=== PATIENT | female | born 1965 | race Caucasian/White ===

== ENCOUNTER → 2018-07-01 | Outpatient (CLI) | payer OTHER | LOC: RAD 02:02 | DX: Z12.31 Encounter for screening mammogram for malignant neoplasm of breast (principal) ==

== ENCOUNTER → 2018-08-28 | Outpatient (CLI) | payer OTHER ==
--- NOTE | 2018-08-29 16:08 | PATH ---
[facility] [place] [address] PATHOLOGY RPT PROCEDURE Name: LOVE SLOAN Room #: REG Jero Albert.#: [id number] Admission: 08/28/18 Date of : 63 Discharge: Report #: [id number] Path Case #: [id number] [facility] Accession Number: [id number] . 01 Material submitted: . RIGHT BREAST NODULE-CENTRAL . 01 Clinical history: . Right breast nodule . 02 Diagnosis: Breast, right breast central nodule, needle core biopsy: - Cystic papillary apocrine metaplasia measuring 7 mm in greatest dimension. - Background breast tissue showing proliferative fibrocystic changes including duct ectasia, usual ductal hyperplasia and columnar cell hyperplasia. - Negative for atypia or malignancy. . (IUV:mml; 08/29/2018) QLM/08/29/2018 . 02 Comment: Dr. Ivette Pina has seen a unit support representative slide of this case and concurs with my diagnosis. . (IUV:mml; 08/29/2018) . 02 Electronically signed: . Elodia Montiel MD, Pathologist NPI- [id number] . 01 Gross description: . The specimen is received in formalin, labeled "Love Sloanautumn" and additionally labeled on the requisition as, "right breast nodule" and consists of multiple needle cores of yellow tissue measuring 3.5 x 2.5 x 0.8 cm in aggregate which are entirely submitted in A1-A3. The cold ischemic time is 3 minutes and the total formalin fixation time is greater than 6 hours but less than 72 hours. (SDY; 08/28/2018) SANTANAU/NGA . 02 Pathologist provided ICD-10: N60.11, N60.41, N62, N60.81 . 02 CPT . [id number] [address] [address] PATHOLOGY RPT PROCEDURE Name: LOVE SLOAN LISSETTE Room #: REG CLI [facility]#: [id number] Admission: 08/28/18 Date of : 63 Discharge: Report #: [id number] Path Case #: [id number] Specimen Comment: A courtesy copy of this report has been sent to Specimen Comment: [phone], , . Specimen Comment: Report sent to ,DR VINCENT / DR KWOK Performed at: [address], [place], [place] [id number] MD Lonnie Aggarwal MD Phone: [phone] Performed at: [address], [place], [place] [id number] MD Elodia Montiel MD Phone: [phone]
== END | disposition home or self-care (01) ==
LOC: RADSTEREO 08:24
DX: N60.11 Diffuse cystic mastopathy of right breast (principal); N60.41 Mammary duct ectasia of right breast; N60.81 Other benign mammary dysplasias of right breast; N62 Hypertrophy of breast; R92.1 Mammographic calcification found on diagnostic imaging of breast